=== PATIENT | male | born 1980 | race Hispanic/Latino ===

== ENCOUNTER 2023-05-02 14:46 | Emergency (ER) | payer SELFPAY ==
--- NOTE | ~2023-05-02 | CT_ITS ---
EXAMINATION: CT abdomen pelvis w con INDICATION: Right lower quadrant abdominal pain TECHNIQUE: Computed tomographic images of the abdomen and pelvis were obtained after the administrati on of 100 cc of Omnipaque 350 intravenous contrast. The dose-length product (DLP) was 448.65 mGy-cm. Automated exposure control and iterative reconstruction technique were employed. COMPARISON: None available FINDINGS: The lung bases are clear. The heart size is normal. Respiratory motion limits evaluation of the mid and upper abdomen. The liver, spleen, pancreas, gallbladder, and adrenal glands are normal. The kidneys are unremarkable. No pathologically enlarged abdominal or pelvic lymph nodes are identifi ed. The appendix is normal. No free intraperitoneal gas or evidence of bowel obstruction. IMPRESSION: 1. No CT correlate for the patient's symptoms. Reviewed, dictated and finalized at location F.
--- NOTE | ~2023-05-02 | US_ITS ---
EXAMINATION: US scrotum doppler DATE: 05/02/2023 20:41 INDICATION: Right testicular pain TECHNIQUE: Testicular sonogram utilizing grayscale and Doppler COMPARISON: None. FINDINGS: The right testis measures 4.2 x 2.6 x 2.8 cm. The left testis measures 3.8 x 2.8 x 2.6 cm. There is normal vascular flow to both testes. The right epididymis contains an 8 mm cyst or spermatoc kell. The left epididymis is normal with normal vascular flow. There are small bilateral hydroceles. IMPRESSION: 1. Small bilateral hydroceles. Reviewed, dictated and finalized at location F.
[2023-05-02 15:07] VITALS: BP 157/84; PULSE 69; RESP 13; TEMP 36.6; O2SAT 100
--- NOTE | 2023-05-02 15:43 | ED.ABDPAIN ---
HPI - Abdominal Pain General Chief Complaint: Abdominal Pain <Pieter Copeland APRN - Last Filed: 05/02/23 15:46> Stated Complaint: lower back and abd pain <Pieter Copeland APRN - Last Filed: 05/02/23 15:46> Time Seen by Provider: 05/02/23 17:02 <Pieter Copeland APRN - Last Filed: 05/02/23 15:46> Focused HPI: Dylan is a 42-year-old male patient presenting to the ER today with complaints of abdominal pain and lower back pain times. He reports General: Well-developed, well nourished, in no apparent distress. Head: Normocephalic, atraumatic. Cardio: Regular rate and rhythm, s1 and s2 normal, no murmur appreciated. Resp: Clear to auscultation bilaterally, no rhonchi, rales, wheezing or rubs. Abdomen: Soft, pliable, bowel sounds present in all quadrants, non-tender to palpation, no organomegly, no CVAT tenderness. Patient screened in triage and initial orders placed. Additional care and disposition to be based upon diagnostic testing and treatment. <Pieter Copeland APRN - Last Filed: 05/02/23 15:46> Source: patient <Pieter RADHA Copeland - Last Filed: 05/02/23 15:46> Mode of arrival: ambulatory <Pieter Copeland APRN - Last Filed: 05/02/23 15:46> Limitations: no limitations <Pieter Copeland APRN - Last Filed: 05/02/23 15:46> History of Present Illness HPI narrative: 42-year-old Persian-speaking male presents to emergency department for pain to his right lower abdomen, right testicle and lower back for 1 week. Patient denies any medical or surgical history. States the pain is worse with movement and better with rest. He reports some scrotal edema. Denies penile pain or discharge, hematuria or dysuria, nausea or vomiting, diarrhea, fever, concern for STDs. Last bowel movement was yesterday and normal. <Tiffany Thomason PA-C - Last Filed: 05/02/23 22:17> Related Data Home Medications: Home Medications Medication Instructions Recorded Confirmed No Home Medications 05/02/23 05/02/23 <Pieter Copeland APRN - Last Filed: 05/02/23 15:46> Allergies/Adverse Reactions: Allergies Allergy/AdvReac Type Severity Reaction Status Date / Time No Known Allergies Allergy Verified 05/02/23 15:08 <Pieter Copeland APRN - Last Filed: 05/02/23 15:46> Review of Systems Review of Systems: CONSTITUTIONAL: Denies fever, chills, or sweats. EYES: Denies visual changes, redness, or discharge. ENT: Denies rhinorrhea, congestion, sore throat, or otalgia. CARDIOVASCULAR: Denies chest pain, palpitations, or edema. RESPIRATORY: Denies cough or dyspnea. GASTROINTESTINAL: See HPI GENITOURINARY: See HPI SKIN: Denies rash or itching. MUSCULOSKELETAL: Denies back pain, joint pain, or myalgia. NEUROLOGIC: Denies headache, numbness, or weakness. PSYCHIATRIC: Denies anxiety or depression. <Tiffany Thomason PA-C - Last Filed: 05/02/23 22:17> PMFSH Comments At the time of my signature, I reviewed and agree with the nursing past medical, surgical, social, and family history. There is no relevant family history pertinent to the patient complaint. <Pieter Copeland APRN - Last Filed: 05/02/23 15:46> Exam Narrative: GENERAL: Well-appearing, well-nourished, and in no acute distress. HEAD: Normocephalic, atraumatic. EYES: PERRLA and EOMI. ENT: Nares clear, no rhinorrhea or epistaxis. Mucous membranes moist. NECK: Supple. CHEST: Clear to auscultation. No respiratory distress. HEART: Regular rate and rhythm. No murmur heard. Normal peripheral pulses. ABDOMEN: Normoactive bowel sounds. Abdomen soft with tenderness in the right lower quadrant. No rebound, guarding rigidity. No CVA tenderness. BACK: Diffuse tenderness to the lower back without significant midline spinous tenderness, step-offs or deformities. No overlying rashes or skin changes. : Normal penis. No testicular edema. No tenderness to left testicle. Diffuse tenderness to
[2023-05-02 16:09] LABS: Basophils Percent Auto 0.6 % (0.2-1.2); Eosinophils Absolute Auto 0.3 K/mm3 (0-0.3); Eosinophils Percent Auto 3.8 % (0-4.4); Hematocrit 44.3 % (42.0-52.0); Hemoglobin 15.7 g/dL (14.0-18.0); Immature Granulocyte Absolute 0.02 K/mm3 (0.00-0.031); Immature Granulocyte Percent A 0.3 % (0-0.5); Lymphocytes Absolute Auto 2.29 K/mm3 (0.9-3.2); Lymphocytes Percent Auto 33.2 % (18.3-44.2); Mean Corpuscular HGB Conc 35.4 g/dl (32-36); Mean Corpuscular Hemoglobin 31.4 pg (26-34); Mean Corpuscular Volume 88.6 fl (80-100); Mean Platelet Volume 10.6 fl (7.4-10.4); Monocytes Absolute Auto 0.5 K/mm3 (0.1-0.6); Monocytes Percent Auto 7.4 % (2.6-8.5); Neutrophils Absolute Auto 3.8 K/mm3 (1.3-6.7); Neutrophils Percent Auto 54.7 % (45.5-73.1); Platelet Count Result 258 k/mm3 (150-375); Red Cell Distribution Width 12.5 % (11.5-14.5); White Blood Count 6.9 K/mm3 (4.5-10.0)
[2023-05-02 16:11] LABS: Appearance Urine Clear (Clear); Bilirubin Urine Negative (Negative); Blood Urine Negative (Negative); Color Urine Yellow (Yellow); Glucose Urine UA Negative (Negative); Ketones Urine Negative (Negative); Leukocyte Esterase Ur Negative LEU/UL (Negative); Nitrate Urine Negative (Negative); Protein Urine Negative (Negative); Specific Grav Ur 1.006 (1.001-1.035); pH Urine 6.5 (5.0-9.0)
[2023-05-02 16:20] LABS: Alanine Aminotransferase 85 U/L (6-50); Albumin Level 4.8 g/dL (3.5-5.1); Alkaline Phosphatase 120 U/L (38-126); Anion Gap 9 mmol/L (8-16); Aspartate Amino Transferase 66 U/L (17-59); Bilirubin,Total 1.2 mg/dL (0.2-1.3); Blood Urea Nitrogen 11 mg/dL (9-20); Calcium 9.4 mg/dL (8.4-10.2); Carbon Dioxide 29 mmol/L (22-30); Chloride 102 mmol/L (98-107); Estimated Glomerular Filt Rate > 60; Glucose 110 mg/dL (65-110); Lipase 86 U/L (23-300); Potassium 3.8 mmol/L (3.4-5.0); Sodium 140 mmol/L (137-145)
[2023-05-02 16:25] LABS: Add Urine Microscopic? NO
[2023-05-02 17:57] VITALS: BP 136/90; PULSE 79; RESP 16; O2SAT 100
[2023-05-02] MEDS: KETOROLAC 30 MG/ML VIAL (*BKC) IV PUSH (18:40)
--- NOTE | 2023-05-02 19:24 | PC.NURSE ---
care and report given to NUNO Sprague. all questions answered.
[2023-05-02 22:01] VITALS: BP 133/91; PULSE 62; RESP 15; O2SAT 96
[2023-05-02] MEDS: ACETAMINOPHEN 500 MG TABLET 1000 MG PO (22:35)
== END 2023-05-02 22:40 | disposition home or self-care (01) ==
PROVIDERS: Nurse Practitioner Family; Emergency Provider Physician Assistant
DX: R10.31 Right lower quadrant pain (principal); N43.3 Hydrocele, unspecified
CPT/HCPCS: 36415; 74177; 76870; 80053; 83690; 85025; 93976; 96374; 99284; A9270; J1885; Q9967